=== PATIENT | male | born 1955 | race Hispanic/Latino ===

== ENCOUNTER 2018-09-19 14:35 | Inpatient (IN) | payer OTHER | END 2018-09-22 17:00 | disposition left against medical advice (07) | LOC: EDH 14:35 → 3BH 09-20 16:14 → EDHIP 18:42 | DX: J44.1 Chronic obstructive pulmonary disease with (acute) exacerbation (principal); E87.1 Hypo-osmolality and hyponatremia; F10.10 Alcohol abuse, uncomplicated; R19.7 Diarrhea, unspecified; R19.5 Other fecal abnormalities ==

== ENCOUNTER 2023-01-10 08:10 | Day surgery (SDC) | payer MEDICARE ==
[2023-01-06 14:06] LABS: BASOPHILS % (AUTO) 0.9 % (0.0-5.0); EOSINOPHILS % (AUTO) 0.7 % (0.0-8.0); HEMATOCRIT 39.3 % (42-54); LYMPHOCYTES % (AUTO) 29.7 % (21.0-51.0); MEAN CORPUSCULAR HEMOGLOBIN 32.6 pg (27.0-33.0); MEAN CORPUSCULAR HGB CONC 33.8 g/dL (32.0-36.0); MEAN CORPUSCULAR VOLUME 96.3 fL (79-99); MONOCYTES % (AUTO) 11.8 % (3.0-13.0); NEUTROPHILS % (AUTO) 56.5 % (40.0-77.0); PLATELET COUNT (AUTO) 217 K/uL (130-400); RED BLOOD CELL COUNT(AUTO) 4.08 MIL/uL (4.50-6.20); RED CELL DISTRIBUTION WIDTH 13.2 % (11.0-15.5); WHITE BLOOD COUNT (AUTO) 5.4 K/uL (4.8-10.8)
[2023-01-06 14:15] VITALS: BP 142/80
[2023-01-06 14:20] LABS: INR 0.99 (0.85-1.15); PROTHROMBIN TIME 11.5 SEC (9.6-11.6)
[2023-01-06 14:21] LABS: APPEARANCE,URINE CLEAR (CLEAR); BILIRUBIN,URINE NEGATIVE (NEGATIVE); COLOR,URINE LIGHT-YELLOW (YELLOW); GLUCOSE, URINE (UA) NEGATIVE (NEGATIVE); KETONES,URINE NEGATIVE (NEGATIVE); LEUKOCYTE ESTERASE ,URINE NEGATIVE Leu/uL (NEGATIVE); NITRATE,URINE NEGATIVE (NEGATIVE); OCCULT BLOOD,URINE NEGATIVE (NEGATIVE); PROTEIN,URINE NEGATIVE (NEGATIVE); UROBILINOGEN,URINE 0.2 mg/dL (0.2-1.0)
[2023-01-06 14:37] LABS: ALBUMIN 3.8 g/dL (3.5-5.0); CREATININE 0.7 mg/dL (0.5-1.5); POTASSIUM 4.3 mmol/L (3.5-5.1); TOTAL PROTEIN, SERUM 7.3 g/dL (6.0-8.3)
[2023-01-06 14:40] LABS: B-TYPE NATRIURETIC PEPTIDE 10 pg/mL (0-100)
[2023-01-10] VITALS (9 sets, daily range): BP systolic 127–158; BP diastolic 63–98
[~2023-01-10] VITALS: Ht 167.6 cm; Wt 48.2 kg
[~2023-01-10 08:10] MED LIST: ALBU90AE IH; ASPI-556 PO; ATOR40TA71 PO; BUDE10.22 IH; ERGO500093 PO; NITR0.4T50 SL
[2023-01-10] MEDS ORDERED: 0.9%NACL 1000ML 1,000 ML IV ONE (08:57)
[2023-01-10] MEDS ORDERED: FENTANYL CITRATE PF 50 MCG/1 ML 2ML VIAL ONE (16:10)
[2023-01-10] MEDS ORDERED: MIDAZOLAM HCL 1 MG/ML 2ML VIAL ONE (16:10)
[2023-01-10] MEDS ORDERED: LIDOCAINE HCL 400MG/20ML VIAL ONE (16:10)
[2023-01-10] MEDS ORDERED: IOHEXOL 350 MG/ML 100ML INFUS..BTL IV ONE (16:11)
[2023-01-10] MEDS ORDERED: NITROGLYCERIN 50MG VIAL ONE (16:11)
[2023-01-10] MEDS ORDERED: IOHEXOL-350 50ML VIAL IV ONE (16:30)
[2023-01-10] MEDS ORDERED: LABETALOL 20MG SYG IV ONE (16:42)
[2023-01-10] MEDS ORDERED: LABETALOL 20MG VIAL IV ONE (17:05)
[2023-01-10] MEDS ORDERED: 0.9%NACL 1000ML 1,000 ML IV SCH (18:00)
== END 2023-01-10 22:00 ==
LOC: DAH 08:10
PROVIDERS: ATTEND Internal Medicine Cardiovascular Disease
DX: I25.118 Atherosclerotic heart disease of native coronary artery with other forms of angina pectoris (principal); J44.9 Chronic obstructive pulmonary disease, unspecified; E78.5 Hyperlipidemia, unspecified; F17.210 Nicotine dependence, cigarettes, uncomplicated; Z79.82 Long term (current) use of aspirin; Z79.899 Other long term (current) drug therapy; Z79.01 Long term (current) use of anticoagulants; Z72.89 Other problems related to lifestyle; Z98.890 Other specified postprocedural states
CPT/HCPCS: 80061; 80053; 83880; 85025; 85610; 85730; 81003; 36415; 71045; 93005; 93458; C1894 ×2; C1760; J3010; J3490 ×3; J7030; J2250; J1644; Q9967 ×2; A4215; A4222; A4221; A4663; A4216; A4606; Q9965 ×2; A4223 ×3; 99156; 99157

== ENCOUNTER 2023-05-29 10:56 | Emergency (ER) | payer MEDICARE, OTHER ==
[~2023-05-29] VITALS: Ht 157.5 cm; Wt 47.6 kg
[2023-05-29 12:37] LABS: HEMATOCRIT 42.7 % (42-54); MEAN CORPUSCULAR HEMOGLOBIN 31.8 pg (27.0-33.0); MEAN CORPUSCULAR HGB CONC 34.2 g/dL (32.0-36.0); RED BLOOD CELL COUNT(AUTO) 4.59 MIL/uL (4.50-6.20); RED CELL DISTRIBUTION WIDTH 14.2 % (11.0-15.5)
[2023-05-29 12:54] LABS: CREATININE 0.5 mg/dL (0.5-1.5); MAGNESIUM 1.7 mg/dL (1.80-2.40)
[2023-05-29] MEDS ORDERED: IPRATROPIUM/ALBUTEROL SULFATE 3 ML SOLUTION IH ONE (14:30)
[2023-05-29] MEDS ORDERED: [UNRECOGNIZED DRUG - OTHER] IV SCH ×5 (14:30)
[2023-05-29] MEDS ORDERED: M V I IV SCH ×6 (14:30)
[2023-05-29] MEDS ORDERED: THIAMINE HCL IV SCH ×6 (14:30)
[2023-05-29] MEDS ORDERED: [UNRECOGNIZED DRUG - OTHER] IV SCH (14:30)
[2023-05-29] MEDS ORDERED: MAGNESIUM SULFATE IV SCH (14:30)
[2023-05-29] MEDS ORDERED: FOLIC ACID IV SCH ×5 (14:30)
[2023-05-29 14:57] VITALS: PULSE 75; RESP 18
[2023-05-29] MEDS ORDERED: OCTYL 2-CYANOACRYLATE 1 EACH TP SCH (15:00)
[2023-05-29] MEDS ORDERED: FOLIC ACID 5 MG/ML VIAL IV ONE (15:00)
[2023-05-29 18:03] VITALS: BP 104/61; PULSE 81; RESP 16; O2SAT 96
== END 2023-05-29 18:43 | disposition home or self-care (01) ==
LOC: EDH 10:56
DX: F10.20 Alcohol dependence, uncomplicated (principal); E83.42 Hypomagnesemia; E87.8 Other disorders of electrolyte and fluid balance, not elsewhere classified; E83.51 Hypocalcemia; E87.1 Hypo-osmolality and hyponatremia; E78.00 Pure hypercholesterolemia, unspecified; I10 Essential (primary) hypertension; Z95.1 Presence of aortocoronary bypass graft; Y90.8 Blood alcohol level of 240 mg/100 ml or more
CPT/HCPCS: 99285; 70450; 96365; 71045; 96375; 82550; 83735; 84484; 80048; 83880; 85027; 36415; 72170; 72125; 93005; 94640; J7120; J3475; J3411; J3490

== ENCOUNTER → 2024-02-06 | Outpatient (CLI) | payer OTHER | END | disposition home or self-care (01) | LOC: RAH 09:07 | PROVIDERS: ATTEND Family Medicine | DX: M19.011 Primary osteoarthritis, right shoulder (principal); M25.511 Pain in right shoulder | CPT/HCPCS: 73030 ==

== ENCOUNTER → 2024-10-03 | Outpatient (CLI) | payer OTHER ==
[~2024-10-03] VITALS: Ht 167.6 cm; Wt 50.0 kg
[~2024-10-03] MED LIST changes: +ACET-2247 PO; -ALBU90AE IH; +ALBUTEROL IH; -ASPI-556 PO; +BACL10TA PO; -BUDE10.22 IH; +CLOP75TA32 PO; +DONE5TAB33 PO; -ERGO500093 PO; +GABA-529 PO; +METO-391 PO; +NAPR-1194 PO; -NITR0.4T50 SL; +TRELEGY IH
[2024-10-03 10:40] LABS: BASOPHILS # (AUTO) 0.06 K/uL (0.00-0.20); EOSINOPHILS # (AUTO) 0.27 K/uL (0.00-0.70); EOSINOPHILS % (AUTO) 4.4 % (0.0-8.0); HEMATOCRIT 42.5 % (42-54); IMMATURE GRANULOCYTE ABSOLUTE 0.01 K/uL (0-1); LYMPHOCYTES # (AUTO) 1.5 K/uL (1.0-4.8); LYMPHOCYTES % (AUTO) 24.9 % (21.0-51.0); MEAN CORPUSCULAR HEMOGLOBIN 32.8 pg (27.0-33.0); MEAN CORPUSCULAR HGB CONC 34.4 g/dL (32.0-36.0); MEAN CORPUSCULAR VOLUME 95.5 fL (79-99); MONOCYTES # (AUTO) 0.7 K/uL (0.1-1.0); MONOCYTES % (AUTO) 10.8 % (3.0-13.0); NEUTROPHILS # (AUTO) 3.6 K/uL (1.8-7.7); NEUTROPHILS % (AUTO) 58.7 % (40.0-77.0); PLATELET COUNT (AUTO) 263 K/uL (130-400); RED BLOOD CELL COUNT(AUTO) 4.45 MIL/uL (4.50-6.20); RED CELL DISTRIBUTION WIDTH 13.3 % (11.0-15.5); WHITE BLOOD COUNT (AUTO) 6.1 K/uL (4.8-10.8)
[2024-10-03 10:49] LABS: POTASSIUM 5.7 mmol/L (3.5-5.1)
[2024-10-03 11:02] LABS: INR 1.05 (0.85-1.15); PROTHROMBIN TIME 11.1 SEC (9.6-11.6)
[2024-10-03 11:04] LABS: PARTIAL THROMBOPLASTIN TIME 30.2 SEC (26.3-35.5)
[2024-10-03 11:13] VITALS: BP 154/87; PULSE 69; RESP 14; TEMP 97
--- NOTE | 2024-10-04 10:23 | NUR ---
report reported bmp to dr paul received orders surgical clearance needed. dr evans also notified of above. pt was just seen by pcp this week but sodium was abnormal so as per dr chahal/najma pt can not be cleared pt/spouse notified of cancellation and voiced understanding.
== END | disposition home or self-care (01) ==
LOC: DAH 08:00 → EDSTATUS 10-05 12:10
PROVIDERS: ATTEND Student in an Organized Health Care Education/Training Program
DX: Z01.812 Encounter for preprocedural laboratory examination (principal); Z01.810 Encounter for preprocedural cardiovascular examination; G56.01 Carpal tunnel syndrome, right upper limb; G56.20 Lesion of ulnar nerve, unspecified upper limb; I48.0 Paroxysmal atrial fibrillation; R53.1 Weakness; G56.21 Lesion of ulnar nerve, right upper limb; R29.898 Other symptoms and signs involving the musculoskeletal system; Z79.899 Other long term (current) drug therapy; M25.511 Pain in right shoulder
CPT/HCPCS: 36415; 80048; 85025; 85610; 85730

== ENCOUNTER → 2024-10-30 | Outpatient (CLI) | payer OTHER ==
--- NOTE | 2024-10-30 10:50 | HMCIMG ---
Exam Type: CHEST 2VWS Clinical Information: PRE-OPERATIVE EXAM Comparison: None Findings: There is status post median sternotomy. The lungs are clear of infiltrates. The heart is normal in size. Impression: Clear lungs.
== END | disposition home or self-care (01) ==
LOC: RAH 09:02
PROVIDERS: ATTEND Family Medicine
DX: Z01.818 Encounter for other preprocedural examination (principal)
CPT/HCPCS: 71046

== ENCOUNTER 2024-11-07 05:51 | Day surgery (SDC) | payer OTHER ==
[2024-11-02 10:28] LABS: BASOPHILS # (AUTO) 0.03 K/uL (0.00-0.20); BASOPHILS % (AUTO) 0.6 % (0.0-5.0); EOSINOPHILS # (AUTO) 0.17 K/uL (0.00-0.70); EOSINOPHILS % (AUTO) 3.4 % (0.0-8.0); HEMATOCRIT 39.8 % (42-54); LYMPHOCYTES # (AUTO) 1.7 K/uL (1.0-4.8); MEAN CORPUSCULAR HGB CONC 34.4 g/dL (32.0-36.0); MEAN CORPUSCULAR VOLUME 95.9 fL (79-99); MONOCYTES # (AUTO) 0.6 K/uL (0.1-1.0); MONOCYTES % (AUTO) 11.7 % (3.0-13.0); NEUTROPHILS # (AUTO) 2.6 K/uL (1.8-7.7); NEUTROPHILS % (AUTO) 51.3 % (40.0-77.0); PLATELET COUNT (AUTO) 228 K/uL (130-400); RED BLOOD CELL COUNT(AUTO) 4.15 MIL/uL (4.50-6.20); RED CELL DISTRIBUTION WIDTH 13.2 % (11.0-15.5); WHITE BLOOD COUNT (AUTO) 5.1 K/uL (4.8-10.8)
[2024-11-02 11:14] VITALS: BP 148/82; PULSE 78; RESP 18; TEMP 97.9
[2024-11-02 11:40] LABS: INR 1.03 (0.85-1.15); PROTHROMBIN TIME 10.9 SEC (9.6-11.6)
[2024-11-02 11:41] LABS: PARTIAL THROMBOPLASTIN TIME 31.5 SEC (26.3-35.5)
[2024-11-07] VITALS (14 sets, daily range): BP systolic 103–136; BP diastolic 55–90; PULSE 67–80; RESP 13–18; TEMP 97.2–97.9
[~2024-11-07] VITALS: Ht 167.6 cm; Wt 50.1 kg
[2024-11-07] MEDS ORDERED: LACTATED RINGERS 1000ML 1,000 ML IV ONE (06:31)
[2024-11-07] MEDS ORDERED: MIDAZOLAM HCL 1 MG/ML 2ML VIAL ONE (06:50)
[2024-11-07] MEDS ORDERED: proPOFol 10 MG/ML 20ML VIAL IV ONE (06:50)
[2024-11-07] MEDS ORDERED: FENTanyl CITRate PF 50 MCG/1 ML 2ML VIAL ONE ×2 (06:51→08:28)
[2024-11-07] MEDS ORDERED: rocuRONium bROMide 10MG/1ML 5ML VL ONE (06:59)
[2024-11-07] MEDS ORDERED: phenylEPHRINE HCL 10 MG/ML 1ML VIAL IV ONE (07:14)
[2024-11-07] MEDS: ceFAZolin SODIUM 2 GM VIAL ONE (07:15)
[2024-11-07] MEDS ORDERED: ondanSETRON 4MG INJ ONE (07:44)
[2024-11-07] MEDS ORDERED: NEOSTIGMINE METHYLSULFATE 1MG/ML IV ONE (08:27)
[2024-11-07] MEDS ORDERED: GLYCOPYRROLATE 0.2 MG/ML 5 ML VIAL ONE (08:27)
[2024-11-07] MEDS ORDERED: ACET-2079 PO (08:30)
[2024-11-07] MEDS ORDERED: ROPivacaine 0.5% 5MG/ML 30ML ONE (08:33)
--- NOTE | 2024-11-07 10:28 | NUR ---
Full and complete discharge instructions given to Patient and Family both verbally and in writing. Explained Surgical procedure precautions and follow up. Neurologically intact. Both dressings clean and dry. Voided in bathroom large amount. All questions answered. PIV removed with catheter tip intact. Home with Family W/C to POV.
--- NOTE | 2024-11-07 18:12 | OP ---
Operative Note: DATE OF PROCEDURE: 11/07/24 SURGEON: JOSELIN ARTHUR MD OFFICE COORDINATOR RECEPTIONIST: Salas Taylor ANESTHESIA: General ANESTHESIOLOGIST/COMMERCIAL UNDERWRITER: Darryl Starr PREOPERATIVE DIAGNOSIS: Right carpal tunnel syndrome, right cubital tunnel syndrome POSTOPERATIVE DIAGNOSIS: Right carpal tunnel syndrome, right cubital tunnel syndrome PROCEDURE: Right carpal tunnel release, right ulnar nerve transposition ESTIMATED BLOOD LOSS: 5 cc INDICATIONS: 69-year-old male with right hand numbness and weakness that was failing to respond to conservative treatment. The patient had EMG/NCS that showed compression of the median nerve at the carpal tunnel and of the ulnar nerve at the elbow. After discussion of the risks, benefits, and alternatives, the patient voluntarily agreed to undergo the aforementioned procedures. DESCRIPTION OF PROCEDURE: Patient was properly identified in the preoperative holding area. Surgical site marking was verified and surgery consent reviewed. The patient was then taken to the operating room and placed in supine position on the OR table. After induction of general anesthesia, preoperative antibiotics were given, all bony prominences were well-padded, and a well padded tourniquet was applied but not inflated at this time. The right upper extremity was then prepped and draped in usual sterile fashion. Surgical timeout was done verifying correct surgery, side, site, and location to be performed. We then began the procedure by exsanguinating the arm using an Esmarch and inflating a tourniquet to 250 mmHg. We made an approximately 2 cm long incision at the ulnar border of the fourth digit, when flexed, on the midpalmar longitudinal crease. Here we came down sharply through the subcutaneous tissue and using a self retaining retractor as well as ragnelles we could visualize the deep tissue. We then identified the transverse carpal ligament and began to come through this a little bit at a time using a 15 blade with small amounts of pressure being applied. The ligament was then released. We directed our attention proximally where we spread above and below the remaining portion of the transverse carpal ligament to break up any adhesions and using a pair of Metzenbaum scissors we slid proximally and transected and the remaining proximal portion of the transverse carpal ligament. Distally, we placed our retractors to help a show the distal extent of the transverse carpal ligament, and we came through this carefully using a 15 blade until we identified the fat surrounding the palmar arch. We used a Machias elevator palpating both the proximal and distal directions to ensure the entire transverse carpal ligament had been released. We then focused our attention on the cubital tunnel marking out a bony landmarks and drawing out our incision. We then used a 15 blade to make an approximately 6 cm long incision. Here we dissected carefully through the subcutaneous tissue. Proximally we were able to identify the ulnar nerve and follow this as it traveled through the cubital tunnel. Using our 15 blade we released the tissue overlying the ulnar nerve and cubital tunnel. We then proceeded proximally and distally releasing tight structures overlying the nerve. We then tested for any remaining tight areas using a freer elevator. The elbow was then taken through a range of motion where we noted the ulnar nerve beginning to subluxate out of the cubital tunnel. We then elected to transpose the ulnar nerve. Using a 15 blade we elevated a fascial sling from the flexor pronator mass. The ulnar nerve was freed up from the remaining soft tissue deep to it. A [place] drain was passed around the ulnar nerve to carefully manipulate it. We then checked proximally and distally for appropriate release of soft tissue to prevent any pressure on the nerve in its transposed location. We freed any remaining tight tissue. We then used a 4-0 Vicryl to repair the sling loosely around the ulnar nerves holding it out of the cubital tunnel in an anteriorly transposed position. At this point we thoroughly irrigated out the wounds with normal saline and injected the surrounding tissue with half percent Marcaine plain. We then began to repair the tissue at the elbow using our 3-0 Vicryl in the subcutaneous tissue and running subcuticular 3-0 Monocryl for the skin. Dermabond was applied at the elbow with telfa and tegaderm dressing applied. The hand wound was then closed with 3-0 nylon interrupted simple suture pattern. Soft sterile dressing was applied with Xeroform, 4 x 4's, and Coban. The tourniquet was then deflated. The patient was awakened from anesthesia. There were taken to the recovery room in stable condition. JOSELIN ARTHUR MD Nov 07, 2024 18:12
== END 2024-11-07 10:30 | disposition home or self-care (01) ==
LOC: DAH 05:51
PROVIDERS: ATTEND Student in an Organized Health Care Education/Training Program
DX: G56.01 Carpal tunnel syndrome, right upper limb (principal); G56.21 Lesion of ulnar nerve, right upper limb; I25.10 Atherosclerotic heart disease of native coronary artery without angina pectoris; I10 Essential (primary) hypertension; J44.9 Chronic obstructive pulmonary disease, unspecified; Z79.01 Long term (current) use of anticoagulants; Z82.49 Family history of ischemic heart disease and other diseases of the circulatory system; Z79.899 Other long term (current) drug therapy; Z98.890 Other specified postprocedural states
CPT/HCPCS: 64417; 64718; 64721; 85025; 85610; 85730; 36415; A4223 ×2; A4663; J7120; J3010 ×2; J3490 ×2; J2250; J2704; J2405; J2710; J2795; J2371; J0690; A6223; A4649 ×2; A5120; A4215; A4213; A4222; A4221; A4216